=== PATIENT | male | born 1975 | race Two or more races ===

== ENCOUNTER → 2017-09-16 | Emergency (ER) | payer OTHER ==
[~2017-09-16] VITALS: Ht 170.2 cm; Wt 87.1 kg
[~2017-09-16] MED LIST: COZAAR100 MG PO; COZAAR50 MG PO; MOBIC15 MG PO
== END | disposition home or self-care (01) ==
LOC: ER 20:22
DX: R07.89 Other chest pain (principal)

== ENCOUNTER 2018-12-10 11:54 | Emergency (ER) | payer OTHER ==
[~2018-12-10] VITALS: Ht 170.2 cm; Wt 84.8 kg
[2018-12-10] MEDS ORDERED: CARDIZEM LA180 MG (12:10)
[2018-12-10] MEDS ORDERED: HYDROCHLOROTH12.5 MG (12:11)
== END 2018-12-10 15:30 | disposition home or self-care (01) ==
LOC: ER 11:54
DX: G89.11 Acute pain due to trauma (principal); M79.604 Pain in right leg

== ENCOUNTER → 2021-04-28 | Emergency (ER) | payer OTHER ==
[~2021-04-28] VITALS: Ht 170.2 cm; Wt 85.3 kg
[~2021-04-28] MED LIST changes: +CARDIZEM LA180 MG; +HYDROCHLOROTH12.5 MG
== END | disposition home or self-care (01) ==
LOC: ER 14:54
DX: M94.0 Chondrocostal junction syndrome [Tietze] (principal); I10 Essential (primary) hypertension

== ENCOUNTER 2021-06-02 18:28 | Emergency (ER) | payer OTHER ==
[~2021-06-02] VITALS: Ht 170.2 cm; Wt 86.2 kg
[2021-06-02] MEDS ORDERED: PAXIL20 MG PO (18:37)
== END 2021-06-02 19:10 | disposition home or self-care (01) ==
LOC: ER 18:28
DX: B34.9 Viral infection, unspecified (principal)

== ENCOUNTER → 2024-07-16 | Emergency (ER) | payer OTHER ==
[~2024-07-16] VITALS: Ht 167.6 cm; Wt 90.7 kg
[~2024-07-16] MED LIST changes: +0.9 % SODIUM CHLORIDE 1,000 ML IV STA; +FAMOTIDINE/PF 20 MG/2 ML VIAL ONE; +FAMOtidine 10 MG/ML (4ML VIAL) IV PUSH STA; +METOCLOPRAMIDE HCL 5 MG/ML VIAL IM STA; +METOCLOPRAMIDE HCL 5 MG/ML VIAL ONE; +PAXIL20 MG PO
[2024-07-16 19:10] LABS: HEMATOCRIT 41.3 % (39.0-48.0); HEMOGLOBIN 14.2 g/dL (13-16.00); MEAN CELL VOLUME 89.3 fL (80.0-100.00); MEAN CORPUSCULAR HEMOGLOBIN 30.7 pg (27.00-32.0); MEAN CORPUSCULAR HGB CONC 34.4 g/dl (32.0-36.0); RED BLOOD COUNT 4.63 M/uL (4.00-6.00); RED CELL DISTRIBUTION WIDTH 13.7 % (11.5-14.5)
[2024-07-16 19:35] LABS: PLATELET COUNT 106 K/uL (150-450)
[2024-07-16 19:59] LABS: CALCIUM 9.4 mg/dL (8.5-10.1); CREATININE SERUM 0.86 mg/dL (0.70-1.30); GFR 95.32; POTASSIUM 4.24 mEq/L (3.5-5.1)
== END | disposition home or self-care (01) ==
LOC: ER 15:16
DX: K29.70 Gastritis, unspecified, without bleeding (principal); I10 Essential (primary) hypertension